=== PATIENT | male | born 1955 | race Caucasian/White ===

== ENCOUNTER 2021-10-02 21:46 | Emergency (ER) | payer OTHER ==
[2021-10-02] MEDS ORDERED: Sodium Chloride 0.9% 1000 ML 1,000 ML IV STA (22:12)
[2021-10-02 22:15] VITALS: O2SAT 97
[2021-10-02] MEDS ORDERED: Unasyn 3 GM Vial*** 3 G in Sodium Chloride 0.9% 100 ML BAG 100 ML IV ONE (22:22)
[2021-10-02] MEDS ORDERED: Sodium Chloride 0.9% 1000 ML 1,000 ML ONE (22:30)
[2021-10-02] MEDS ORDERED: Unasyn 3 GM Vial ONE (22:30)
[2021-10-02] MEDS ORDERED: Sodium Chloride 0.9% 100 ML BAG 100 ML ONE (22:30)
--- NOTE | 2021-10-02 22:31 | ERPHSYRPT ---
- History of Present Illness Time Seen by Provider: 10/02/21 22:26 Source: patient Exam Limitations: no limitations Patient Subjective Stated Complaint: Patient states the top of his left foot started itching last night. He scratched the top of his foot with a brush and to re the skin off of the top of his foot. Denies any pain to foot or changes in mobility related to area. Triage Nursing Assessment: Patient ambulated back to ED without difficulties. Patient's left foot is swollen with some pitting edema noted to inner ankle area. Pedal pulses present in both feet. Top of foot with bright red open area meaursing 8cm X 6.7cm X 0.1cm. Some redness noted around open area with slight raised blister rash noted to proximal surrounding area. Patient indicates that the rest of his foot looked like this same rash before he scratched the skin off . No drainage noted at this time. Physician History: pt has noted itching all over for months , and treated with antifungal, but recent left foot and has been scratching with scrather but noted wound today and came in. has 5 x 7 skin denuded left dorsal foot. suround blisters. no other rashes or skin lesions. swallowing OK chest clear without wheezes or stridor. pulses intact but general swelling both feet. no SOBreath - no known ht dx or Diabetes. chest clear abd nontender. no masses. Method of Injury: unknown Occurred: days ago Quality: constant, sharpness Severity of Pain-Max: mild Severity of Pain-Current: mild Lower Extremities Pain: foot: left Modifying Factors: Improves With: nothing Associated Symptoms: none Allergies/Adverse Reactions: cefaclor [From Ceclor] Allergy (Mild, Verified 10/02/21 21:53) Rash BREAKS HANDS OUT IN A RASH Home Medications: Aspirin EC 81 mg 81 mg PO DAILY 03/21/13 [History] Lipitor 40 mg PO DAILY 03/21/13 [History] Multivitamin with Minerals [Multivitamins with Minerals] 1 cap PO DAILY 10/02/21 [History] Live Oak-3S/Dha/Epa/Fish Oil [Fish Oil 1,200 mg Softgel] 1 cap PO DAILY 10/02/21 [History] Tadalafil [Cialis] 1 tab PO DAILY 10/02/21 [History] Hx Tetanus, Diphtheria Vaccination/Date Given: No (unsure) Hx Influenza Vaccination/Date Given: No Hx Pneumococcal Vaccination/Date Given: No Immunizations Up to Date: Yes Travel Risk - International Travel Have you traveled outside of the country in past 3 weeks: No - Coronavirus Screening Are you exhibiting any of the following symptoms?: No Close contact with a COVID-19 positive Pt in past 14-21 Days: No - Vaccine Status Have you recieved a Covid-19 vaccination: Yes [employer]: [employer] - Vaccination Dates Date of 2cond Vaccination (if applicable): April 2021 - Review of Systems Constitutional: No Fever, No Chills Eyes: No Symptoms Ears, Nose, & Throat: No Symptoms Respiratory: No Cough, No Dyspnea Cardiac: No Chest Pain, No Edema, No Syncope Abdominal/Gastrointestinal: No Abdominal Pain, No Nausea, No Vomiting, No Diarrhea Genitourinary Symptoms: No Dysuria Musculoskeletal: No Back Pain, No Neck Pain Skin: Cellulitis (left foot), Pruritis, Other, No Rash Neurological: No Dizziness, No Focal Weakness, No Sensory Changes Psychological: No Symptoms Endocrine: No Symptoms Hematologic/Lymphatic: No Symptoms Immunological/Allergic: No Symptoms All Other Systems: Reviewed and Negative - Past Medical History Pertinent Past Medical History: No Neurological History: No Pertinent History ENT History: No Pertinent History Cardiac History: High Cholesterol Respiratory History: No Pertinent History Endocrine Medical History: No Pertinent History Musculoskeletal History: No Pertinent History GI Medical History: No Pertinent History History: No Pertinent History Psycho-Social History: No Pertinent History Male Reproductive Disorders: No Pertinent History - Past Surgical History Past Surgical History: Yes Neuro Surgical History: No Pertinent History Cardiac: No Pertinent History Respiratory: No Pertinent History Gastrointestinal: Cholecystectomy Genitourinary: No Pertinent History Musculoskeletal: No Pertinent History Male Surgical History: No Pertinent History Other Surgical History: Hydocele 2007. TONSILS/Adenoids A CHILD - Social History Smoking Status: Never smoker Exposure to second hand smoke: No Drug Use: none Patient Lives Alone: No - Nursing Vital Signs Nursing Vital Signs: Initial Vital Signs Temperature 98.1 F 10/02/21 21:58 Pulse Rate 84 10/02/21 21:58 Respiratory Rate 20 10/02/21 21:58 Blood Pressure 147/86 10/02/21 21:58 O2 Sat by Pulse Oximetry 97 10/02/21 21:58 Pain Scale Pain Intensity 0 - Physical Exam General Appearance: alert Eyes, Ears, Nose, Throat Exam: moist mucous membranes Neck Exam: non-tender, supple Cardiovascular/Respiratory Exam: chest non-tender, normal breath sounds, regular rate/rhythm, no respiratory distress Gastrointestinal/Abdominal Exam: non-tender, guarding Back Exam: normal inspection, No vertebral tenderness Hips Exam: bilateral: non-tender, normal inspection, normal range of motion, no evidence of injury Legs Exam: bilateral leg: non-tender, normal inspection, normal range of motion, no evidence of injury Knees Exam: bilateral knee: non-tender, normal inspection, normal range of motion, no evidence of injury Ankle Exam: bilateral ankle: non-tender, normal inspection, normal range of motion, no evidence of injury Foot Exam: right foot: normal inspection, no evidence of injury, left foot: abrasions/lacerations, infection, bilateral foot: non-tender, normal range of motion, swelling DTR - Lower Extremities Exam: knee (R): 2+, knee (L): 2+, ankle (R): 2+, ankle (L): 2+ Neuro/Tendon Exam: normal sensation, normal motor functions Mental Status Exam: alert, oriented x 3, cooperative Skin Exam: normal color, warm, dry, rash (left foot blisters) SpO2 Interpretation: normal SpO2: 97 O2 Delivery: Room Air - Course Nursing assessment & vital signs reviewed: Yes - Radiology Ultrasound Exam Venous Lower Extremity Ultrasound: discussed w/radiologist, Other (reported as no DVT) Ordered Tests: Active Orders 24 hr Category Date Time Status IV Insertion STAT Care 10/02/21 22:12 Active VENOUS BILATERAL EXTREMITY [US] Stat Exams 10/02/21 22:16 Taken CBC W DIFF Stat Lab 10/02/21 22:39 Completed CMP Stat Lab 10/02/21 22:39 Completed UA W/RFX UR CULTURE Stat Lab 10/02/21 22:12 Ordered Medication Summary Discontinued Medications Generic Name Dose Route Start Last Admin Trade Name Freq PRN Reason Stop Dose Admin Ampicillin Sodium/Sulbactam Sodium Confirm 10/02/21 22:30 Ampicillin /Sulbactam 3 G/Vial Administered 10/02/21 22:31 Dose 3 g .ROUTE .STK-MED ONE Diphtheria/Tetanus/Acell Pertussis 0.5 ml 10/02/21 22:32 10/02/21 22:39 Tdap --Diph,Pertuss(Acell),Tet Vac/Pf 0.5 Ml Vial IM 10/02/21 22:33 0.5 ml .ONCE ONE Administration Diphtheria/Tetanus/Acell Pertussis Confirm 10/02/21 22:38 Tdap --Diph,Pertuss(Acell),Tet Vac/Pf 0.5 Ml Vial Administered 10/02/21 22:39 Dose 0.5 ml IM .STK-MED ONE Sodium Chloride 1,000 mls @ 999 mls/hr 10/02/21 22:12 10/02/21 22:36 Sodium Chloride 0.9% 1000 Ml IV 10/02/21 23:12 999 mls/hr .Q1H1M STA Administration Ampicillin Sodium/Sulbactam 100 mls @ 300 mls/hr 10/02/21 22:22 10/02/21 22:36 Sodium 3 g/ Sodium Chloride IV 10/02/21 22:41 300 mls/hr STAT ONE Administration Sodium Chloride Confirm 10/02/21 22:30 Sodium Chloride 0.9% 100 Ml Bag Administered 10/02/21 22:31 Dose 100 mls @ ud .ROUTE .STK-MED ONE Sodium Chloride Confirm 10/02/21 22:30 Sodium Chloride 0.9% 1000 Ml Administered 10/02/21 22:31 Dose 1,000 mls @ ud .ROUTE .STK-MED ONE Lab/Rad Data: Laboratory Result Diagrams 10/02/21 22:39 10/02/21 22:39 Laboratory Results 10/02/21 10/02/21 Range/Units 22:39 22:39 WBC 8.0 (4.0-10.5) K/mm3 RBC 4.83 (4.1-5.6) M/mm3 Hgb 14.0 (12.5-18.0) gm/dl Hct 43.6 (42-50) % MCV 90.3 (78-100) fl MCH 29.0 (26-32) pg MCHC 32.1 (32-36) g/dl RDW 14.9 H (11.5-14.0) % Plt Count 205 (150-450) K/mm3 MPV 9.1 (7.5-11.0) fl Gran % 69.1 H (36.0-66.0) % Eos # (Auto) 0.32 (0-0.5) Absolute Lymphs (auto) 1.32 (1.0-4.6) Absolute Monos (auto) 0.79 (0.0-1.3) Lymphocytes % 16.6 L (24.0-44.0) % Monocytes % 9.9 (0.0-12.0) % Eosinophils % 4.0 (0.00-5.0) % Basophils % 0.4 (0.0-0.4) % Absolute Granulocytes 5.50 (1.4-6.9) Basophils # 0.03 (0-0.4) Sodium 141 (137-145) mmol/L Potassium 4.2 (3.5-5.1) mmol/L Chloride 106 (98-107) mmol/L Carbon Dioxide 25 (22-30) mmol/L Anion Gap 14.3 (5-15) MEQ/L BUN 21 H (9-20) mg/dL Creatinine 1.05 (0.66-1.25) mg/dL Estimated GFR > 60.0 ML/MIN Glucose 108 H (74-106) mg/dL Calcium 9.2 (8.4-10.2) mg/dL Total Bilirubin 0.60 (0.2-1.3) mg/dL AST 29 (17-59) U/L ALT 27 (0-50) U/L Alkaline Phosphatase 71 (38-126) U/L Serum Total Protein 6.7 (6.3-8.2) g/dL Albumin 4.1 (3.5-5.0) g/dL - Progress Progress: improved, re-examined Progress Note: 10/02/21 23:54 pain has resolved, no DVT reported on US and pt feels well to go and would like to pursue outpt f/u rather than admission to hosp for further eval and tx and has the capacity to make this choice. He understands that complication can occur in the meantime , and that undetected pathology could be evolving and that precise cause is yet undetermined. Counseled pt/family regarding: lab results, diagnosis, need for follow-up, rad results - Departure Departure Disposition: Home Clinical Impression: Cellulitis left foot, Fungal infection of foot, Contact dermatitis Condition: Good Critical Care Time: No Referrals: JIMMY FINNEGAN MD [Primary Care Provider] - Follow up/PCP as directed Instructions: Jock Itch, Cellulitis and Erysipelas (Skin Infections), Contact Dermatitis (DC), Cellulitis (Skin Infection), Adult (DC), Itchy Skin Additional Instructions: follow-up with Dr. Aburto Monday. And arrange for furhter workup with Dr. Finnegan for the itching and to rule out Diabetes, and for BP control/Tx. Change dressing daily. also apply clortrimazole to itching areas. return meantime if not improving or concern. Prescriptions: Amox Tr/Potass Clav. 875 mg [Augmentin 875-125 Tablet] 875 mg PO BID #20 tablet Mupirocin [Bactroban OINTMENT] 22 gm TP BID #1 pkt
[2021-10-02] MEDS ORDERED: Adacel Vial IM ONE ×2 (22:32→22:38)
[2021-10-02 22:51] LABS: BASOPHIL % 0.4 % (0.0-0.4); Basophil (Absolute #) 0.03 (0-0.4); Eosinophil (Absolute #) 0.32 (0-0.5); Hematocrit 43.6 % (42-50); Lymphocyte (Absolute #) 1.32 (1.0-4.6); Lymphocytes % 16.6 % (24.0-44.0); Mean Cell Volume 90.3 fl (78-100); Mean Corpuscular Hgb Concent. 32.1 g/dl (32-36); Mean Platelet Volume 9.1 fl (7.5-11.0); Monocyte (Absolute #) 0.79 (0.0-1.3); Monocytes % 9.9 % (0.0-12.0); Neutrophil % 69.1 % (36.0-66.0); Platelet Count 205 K/mm3 (150-450); Red Blood Count 4.83 M/mm3 (4.1-5.6); Red Cell Distribution Width 14.9 % (11.5-14.0)
[2021-10-02 22:58] LABS: ALBUMIN 4.1 g/dL (3.5-5.0); ALKALINE PHOSPHATASE 71 U/L (38-126); ANION GAP 14.3 MEQ/L (5-15); BLOOD UREA NITROGEN 21 mg/dL (9-20); CHLORIDE 106 mmol/L (98-107); Calcium 9.2 mg/dL (8.4-10.2); Carbon Dioxide 25 mmol/L (22-30); Creatinine 1 1.05 mg/dL (0.66-1.25); EST GLOMERULAR FILTRATION RATE > 60.0 ML/MIN; Glucose 108 mg/dL (74-106); Potassium 4.2 mmol/L (3.5-5.1); SGOT/AST 29 U/L (17-59); SGPT/ALT 27 U/L (0-50); SODIUM 141 mmol/L (137-145); Total Protein 6.7 g/dL (6.3-8.2)
[2021-10-02 23:20] VITALS: BP 145/88; PULSE 78
[2021-10-03] MEDS ORDERED: BACIGUENT PACKET ONE (00:02)
--- NOTE | 2021-10-03 07:37 | XRAY ---
Indication: Bilateral lower extremity swelling. Two-dimensional sonogram and color Doppler imaging of the major venous vessels of the left and right leg performed. Comparison: None No thrombus seen in the examined deep venous vessels of the left and right leg including greater saphenous vein. Veins demonstrate normal compressibility. Venous waveforms are normal with and without augmentation. Impression: Left and right legs negative for DVT. Comment: Preliminary report was given.
== END 2021-10-03 00:20 | disposition home or self-care (01) ==
LOC: ED 21:46
DX: L03.116 Cellulitis of left lower limb (principal); B35.3 Tinea pedis; L25.9 Unspecified contact dermatitis, unspecified cause; L29.8 Other pruritus; E78.5 Hyperlipidemia, unspecified
CPT/HCPCS: 36000; 36415; 80053; 85025; 90471; 90715; 93970; 99284; J0295; A9270-GY